=== PATIENT | male | born 1960 | race Caucasian/White ===

== ENCOUNTER 2016-11-24 05:15 | Day surgery (SDC) | payer OTHER ==
[~2016-11-24] VITALS: Ht 172.7 cm; Wt 88.4 kg
[~2016-11-24 05:15] MED LIST: ASPIR-LOW81 MG PO; ASPIRIN81 M1 PO; ATORVASTATIN CA40 MG PO; COUMADIN5 MG PO; DAILY VITE1 EAC1 PO; DIOVAN HCT 11 TABLE1 PO; GABAPENTIN300 MG PO; IRON325 MG PO; JANTOVEN10 MG PO; JANTOVEN5 MG PO; LOPRESSOR25 MG PO; LOSARTAN POTASS50 MG PO; MEN'S ONE DAIL1 EACH PO; METOPROLOL TART25 MG PO; NIFEDIPINE ER60 M1 PO; NIFEDIPINE ER60 MG PO; NITROSTAT0.4 MG SL; ONE DAILY FOR1 EACH PO; OXYCODONE-APAP1 EACH PO; PANTOPRAZOLE SO40 MG PO; PERCOCET 10/1 TABLET PO; PERCOCET 5/31 TABLET PO; PRAVASTATIN SOD10 MG PO; SYMBICORT60 INHALAT IH; VENTOLIN HFA18 GM IH; ZOLPIDEM TARTRAT5 MG PO
[2016-11-24 06:00] VITALS: BP 141/70
[2016-11-24 10:30] VITALS: BP 136/76
[2016-11-24 11:23] VITALS: BP 125/75
== END 2016-11-24 11:40 | disposition home or self-care (01) ==
LOC: SDC 05:15
DX: M75.102 Unspecified rotator cuff tear or rupture of left shoulder, not specified as traumatic (principal); X50.0XXA Overexertion from strenuous movement or load, initial encounter; I10 Essential (primary) hypertension; J44.9 Chronic obstructive pulmonary disease, unspecified; Z87.891 Personal history of nicotine dependence; G47.30 Sleep apnea, unspecified; K21.9 Gastro-esophageal reflux disease without esophagitis; Z79.82 Long term (current) use of aspirin; J45.909 Unspecified asthma, uncomplicated; E78.00 Pure hypercholesterolemia, unspecified; Z95.1 Presence of aortocoronary bypass graft; Z82.49 Family history of ischemic heart disease and other diseases of the circulatory system; Z83.3 Family history of diabetes mellitus; Z83.2 Family history of diseases of the blood and blood-forming organs and certain disorders involving the immune mechanism
CPT/HCPCS: C1713; J0171; J0330; J0690; J1100; J1885; J2250; J2405; J2795; J3010

== ENCOUNTER 2016-11-30 21:54 | Emergency (ER) | payer OTHER ==
[~2016-11-30] VITALS: Ht 172.7 cm; Wt 88.6 kg
[2016-11-30 22:38] LABS: HEMATOCRIT 36.2 % (38.0-50.0); MCH 31.7 PG (29.0-34.0); MCHC 34.5 G/DL (30.0-36.0); MCV 91.9 FL (86-99); MEAN PLAT.VOLUME 9.9 uM^3 (9.0-12.4); PLATELET COUNT 284 K/uL (156-360); RBC DIS.WIDTH-CV 11.7 % (11.8-14.6); RBC DIS.WIDTH-SD 39.6 % (39-53); RED BLOOD COUNT 3.94 M/uL (4.00-5.50); WHITE BLOOD COUNT 9.5 K/uL (4.1-10.2)
[2016-11-30 22:52] LABS: CHLORIDE 105 mEq/L (99-109); SODIUM 137 mEq/L (136-147)
[2016-11-30 22:54] LABS: GLUCOSE 114 mg/dL (70-99)
[2016-11-30 22:55] LABS: ANION GAP 10 MEQ/L (2-14)
[2016-11-30 22:58] LABS: GFR ESTIMATE (CALCULATED) > 59 mL/min/; UREA NITROGEN (BUN) 23 mg/dL (9-23)
[2016-11-30 23:03] LABS: TROP-I INTERPRETATION NEGATIVE; TROPONIN-I < 0.01 ng/mL (0.0-0.30)
[2016-11-30 23:49] LABS: D-DIMER ELISA 0.27 mg/L FEU (< 0.57); PTT 26.3 (25-32)
[2016-12-01 00:13] VITALS: BP 122/84
[2016-12-01 00:46] LABS: TROP-I INTERPRETATION NEGATIVE; TROPONIN-I < 0.01 ng/mL (0.0-0.30)
== END 2016-12-01 01:50 | disposition home or self-care (01) ==
LOC: EME 21:54
PROVIDERS: Emergency Medicine
DX: R07.89 Other chest pain (principal); J45.909 Unspecified asthma, uncomplicated; J44.9 Chronic obstructive pulmonary disease, unspecified; K21.9 Gastro-esophageal reflux disease without esophagitis; Z95.1 Presence of aortocoronary bypass graft; Z87.891 Personal history of nicotine dependence; M25.512 Pain in left shoulder
CPT/HCPCS: 71020; 80048; 84484; 85027; 85379; 85610; 85730; 93005; J2270